=== PATIENT | male | born 1985 | race African-American/Black ===

== ENCOUNTER 2018-07-09 15:08 | Emergency (ER) | payer BC ==
--- NOTE | 2018-07-09 15:12 | PDOC ---
Rapid Medical Evaluation Chief Complaint: Pain Time Seen by Provider: 07/09/18 15:10 Medical Evaluation: 07/09/18 15:11 I have performed a brief in person evaluation of the patient. The patient presents with CC: Dental Pain HPI: Pt is a 33 Yo male who states he has had left upper dental pain x 1.5 weeks. Pt has a dentist however has not seen him. PE: Skin: Clear, no rash HEENT: Oropharynx clear. No trismus, hypoglossal area is soft. Lungs: Mild expiratory wheezing Heart: RRR Abd: soft nontender MS: Moves all extremities Neuro: Alert Psych: Appropriate affect The patient will proceed to [facility] for further evaluation. Discharge Disposition - Diagnosis Pain, dental - Referrals - Patient Instructions - Post Discharge Activity
[2018-07-09 15:16] VITALS: BP 154/100; PULSE 93; TEMP 98.4; BMI 37.2
--- NOTE | 2018-07-09 15:45 | PDOC ---
History of Present Illness - General Chief Complaint: Pain Stated Complaint: MOUTH PAIN Time Seen by Provider: 07/09/18 15:10 - History of Present Illness Initial Comments: 07/09/18 15:43 33-year-old male without comorbidities presents for evaluation of toothache 2 weeks without systemic symptoms. He feels a wisdom tooth may be coming throat. He complains of pain in the left upper rear molar area Past History - Past Medical History Allergies/Adverse Reactions: Allergies Allergy/AdvReac Type Severity Reaction Status Date / Time No Known Allergies Allergy Verified 07/09/18 15:15 Home Medications: Ambulatory Orders Amoxicillin - [Amoxicillin 500mg Capsule -] 500 mg PO BID #14 capsule 07/09/18 Ibuprofen [Motrin -] 600 mg PO TID #30 tablet 07/09/18 - Suicide/Smoking/Psychosocial Hx Smoking History: Never smoked Have you smoked in the past 12 months: No Information on smoking cessation initiated: No Hx Alcohol Use: No Drug/Substance Use Hx: No Review of Systems - Review of Systems Constitutional: No: Fever HEENTM: Yes: Dental Problems *Physical Exam - Vital Signs Last Vital Signs Temp Pulse Resp BP Pulse Ox 98.4 F 93 H 18 154/100 98 07/09/18 15:11 07/09/18 15:11 07/09/18 15:11 07/09/18 15:11 07/09/18 15:11 - Physical Exam Comments: 07/09/18 15:44 HEAD: NC/AT EYES: Conjuntiva clear Ears: Canals and TM's normal NOSE: No d/c THROAT: Moist mucous membrances, oral pharanx clear, uvula midline Oral examination is normal I do not appreciate an impact wisdom tooth nor do I see any indication of infection. MS: Full ROM in all joints without edema NEUROLOGIC: No gross sensory or motor deficits, NVID SKIN: Normal color and temperature no lesions or rashes Medical Decision Making - Medical Decision Making 07/09/18 15:44 Prophylactic antibiotics prescribed as well as Motrin discussed use of Tylenol to supplement this medication and have advised him to follow-up with urgent care dental today *DC/Admit/Observation/Transfer Diagnosis at time of Disposition: Pain, dental - Discharge Dispostion Disposition: HOME Condition at time of disposition: Stable Decision to Admit order: No - Prescriptions Prescriptions: Amoxicillin - [Amoxicillin 500mg Capsule -] 500 mg PO BID #14 capsule Ibuprofen [Motrin -] 600 mg PO TID #30 tablet - Referrals Referrals: Urgent Care Dental [Outside] - Patient Instructions Additional Instructions: Please follow-up with urgent care dental for further evaluation and treatment options and return to the emergency room should symptoms worsen. Please take the antibiotics as directed. The Motrin is one tablet 3 times a day for pain with food discontinue the medication if it bothers her stomach. He may add Tylenol to your medication regimen for additional pain control. - Post Discharge Activity
== END 2018-07-09 15:53 | disposition home or self-care (01) ==
LOC: JERFT 15:08
DX: K08.89 Other specified disorders of teeth and supporting structures (principal)
CPT/HCPCS: 99281-25

== ENCOUNTER 2023-10-27 20:19 | Emergency (ER) | payer OTHER, BC ==
[2023-10-27 20:31] VITALS: BP 151/91; PULSE 93; RESP 18; TEMP 98.3; BMI 40.4
[2023-10-27] MEDS ORDERED: CYCLOBENZAPRINE HCL 10 MG TABLET (FP) ONE (21:28)
[2023-10-27] MEDS ORDERED: ACETAMINOPHEN 500 MG TABLET (FP) ONE (21:28)
[2023-10-27] MEDS: ACETAMINOPHEN 500 MG TABLET (FP) PO ONE (21:38)
[2023-10-27] MEDS: CYCLOBENZAPRINE HCL 10 MG TABLET (FP) PO ONE (21:38)
== END 2023-10-27 22:45 | disposition home or self-care (01) ==
LOC: JER 20:19
DX: R51.9 Headache, unspecified (principal); M54.2 Cervicalgia; V49.40XA Driver injured in collision with unspecified motor vehicles in traffic accident, initial encounter
CPT/HCPCS: 70450-TC; 72125-TC; 99284-25